=== PATIENT | female | born 1975 | race Caucasian/White ===

== ENCOUNTER 2021-03-10 09:02 | Outpatient (CLI) | payer BC | END 2021-03-10 09:03 | disposition home or self-care (01) | LOC: CSHMAMMO 09:02 | PROVIDERS: ATTEND Obstetrics & Gynecology | DX: R92.8 Other abnormal and inconclusive findings on diagnostic imaging of breast (principal) | CPT/HCPCS: 77066; G0279 ==

== ENCOUNTER 2022-03-31 14:25 | Outpatient (CLI) | payer BC | END 2022-03-31 14:26 | disposition home or self-care (01) | LOC: CSHMAMMO 14:25 | PROVIDERS: ATTEND Obstetrics & Gynecology | DX: Z12.31 Encounter for screening mammogram for malignant neoplasm of breast (principal) | CPT/HCPCS: 77063; 77067 ==

== ENCOUNTER 2023-04-14 13:07 | Outpatient (CLI) | payer BC | END 2023-04-14 13:08 | disposition home or self-care (01) | LOC: CSHMAMMO 13:07 | PROVIDERS: ATTEND Obstetrics & Gynecology | DX: Z12.31 Encounter for screening mammogram for malignant neoplasm of breast (principal) | CPT/HCPCS: 77063; 77067 ==